=== PATIENT | female | born 1935 | race Caucasian/White ===

== ENCOUNTER 2025-07-20 19:14 | Emergency (ER) | payer MEDICARE | END 2025-07-20 22:27 | disposition home or self-care (01) | LOC: ERS 19:14 | DX: Z04.3 Encounter for examination and observation following other accident (principal); I10 Essential (primary) hypertension; W19.XXXA Unspecified fall, initial encounter; Y93.53 Activity, golf; Y92.009 Unspecified place in unspecified non-institutional (private) residence as the place of occurrence of the external cause | CPT/HCPCS: 72170; 72220; 99283 ==

== ENCOUNTER 2025-07-21 22:06 | Inpatient (IN) | payer MEDICARE ==
[2025-07-21 22:59] LABS: Hematocrit 34.1 % (36.0-47.0); Hemoglobin 11.1 g/dL (12.0-16.0); Mean Corpuscular Hemoglobin 29.4 pg (27.0-31.0); Mean Corpuscular Volume 90.2 fL (78.0-98.0); Platelet Count 394 10x3/uL (130-400); Red Blood Cell (RBC) Count 3.78 mill/uL (4.20-5.40); White Blood Cell (WBC) Count 39.84 10x3/uL (4.8-10.8)
[2025-07-21 23:08] LABS: ALT (SGPT) 20 U/L (Less than 34); AST (SGOT) 41 U/L (11-34); Albumin 2.8 g/dL (3.1-4.5); Alkaline Phosphatase 112 U/L (40-110); Anion Gap 19 mmol/L (10-20); BUN (Urea Nitrogen) 20 mg/dL (9.8-20.1); Bilirubin, Total 0.6 mg/dL (0.3-1.2); Calc. Creatinine Clearance 0 mL/min (70-130); Calcium 9.2 mg/dL (7.8-10.44); Carbon Dioxide 21 mmol/L (23-31); Chloride 95 mmol/L (98-107); Globulin 3.9 g/dL (2.4-3.5); Glucose 122 mg/dL (83-110); Potassium 3.1 mmol/L (3.5-5.1); Sodium 132 mmol/L (136-145)
[2025-07-21 23:18] LABS: Anisocytosis SLIGHT = 6-15 cells HPF (0-5); Platelet Adequacy Comment Platelets Normal; Polychromasia SLIGHT = 2-3 cells HPF (0-2)
[2025-07-22] MEDS ORDERED: Cefepime 2 GM VIAL ONE (00:13)
[2025-07-22] MEDS ORDERED: Potassium Bicarbonate/Cit Ac 20 MEQ TAB ONE (01:04)
[2025-07-22] MEDS: Vancomycin 1.25 GM / NS 250 ML VIAL-2-BAG IVPB SCH (03:23)
[2025-07-22 03:32] VITALS: BMI 19.5
[2025-07-22] MEDS: NS 0.9% w/ 40 MEQ KCL 1,000 ML IV SCH (04:13)
[2025-07-22 06:42] LABS: Magnesium 1.2 mg/dL (1.6-2.6)
[2025-07-22 06:57] LABS: CRP, High Sensitivity at Bryan 18.11 mg/dL (< or = 0.5)
[2025-07-22] MEDS: Acetaminophen 325 MG TAB PO SCH (09:28)
[2025-07-22] MEDS: Aspirin 81 mg Enteric Coated Tablet PO SCH (09:28)
[2025-07-22] MEDS: Pantoprazole 40 MG DR.TAB PO SCH (09:29)
[2025-07-22] MEDS: Magnesium 2 GM/50 ML(in water) 2 GM in Premix 1 BAG IVPB SCH (14:46)
[2025-07-22 15:25] LABS: Magnesium 1.2 mg/dL (1.6-2.6)
[2025-07-22 16:17] LABS: Glucose, Urine (Dipstick) Normal (Negative); Leukocyte 500 Leu/uL (Negative); Protein, Urine (Dipstick) 10 mg/dL (Neg-Trace); Specific Gravity, Urine 1.013 (1.002-1.036); WBC/HPF Greater than 50 HPF (0-3)
[2025-07-22 16:26] LABS: Bacteria/HPF 1+ HPF (None Seen)
[2025-07-22] MEDS: Vancomycin 1 GM in Premix 1 BAG IVPB SCH (23:22)
[2025-07-23] MEDS ORDERED: Vancomycin 1 GM in Premix 1 BAG IVPB SCH (01:00)
[2025-07-23 06:39] LABS: #Basophils 0.04 10x3/uL (0.0-0.2); #Eosinophils 0.03 10x3/uL (0.0-0.7); #Monocytes 1.32 10x3/uL (0.11-0.59); #Neutrophils 11.34 10x3/uL (1.40-6.50); %Basophils 0.3 % (0.0-1.0); %Eosinophils 0.2 % (0.0-10.0); %Lymphocytes 14.0 % (21.0-51.0); %Monocytes 8.8 % (0.0-10.0); %Neutrophils 75.2 % (42.0-75.0); Hematocrit 30.0 % (36.0-47.0); Hemoglobin 9.5 g/dL (12.0-16.0); Mean Corpuscular Hemoglobin 28.7 pg (27.0-31.0); Mean Corpuscular Volume 90.6 fL (78.0-98.0); Platelet Count 355 10x3/uL (130-400); Red Blood Cell (RBC) Count 3.31 mill/uL (4.20-5.40); White Blood Cell (WBC) Count 15.05 10x3/uL (4.8-10.8)
[2025-07-23 06:53] LABS: Vancomycin, Random 21.5 ug/mL (See Comment)
[2025-07-23 06:54] LABS: Anion Gap 12 mmol/L (10-20); BUN (Urea Nitrogen) 13 mg/dL (9.8-20.1); Calc. Creatinine Clearance 43 mL/min (70-130); Calcium 8.0 mg/dL (7.8-10.44); Carbon Dioxide 23 mmol/L (23-31); Chloride 107 mmol/L (98-107); Glucose 86 mg/dL (83-110); Potassium 3.5 mmol/L (3.5-5.1); Sodium 138 mmol/L (136-145)
[2025-07-23] MEDS: Lisinopril 5 MG TAB PO SCH (15:52)
[2025-07-23 23:31] LABS: Iron 22 ug/dL (50-170); Iron Binding Capacity, Total 169 mcg/dL (265-497)
[2025-07-24 05:53] LABS: #Basophils 0.04 10x3/uL (0.0-0.2); #Eosinophils 0.04 10x3/uL (0.0-0.7); #Monocytes 1.64 10x3/uL (0.11-0.59); #Neutrophils 10.15 10x3/uL (1.40-6.50); %Basophils 0.3 % (0.0-1.0); %Eosinophils 0.3 % (0.0-10.0); %Lymphocytes 20.0 % (21.0-51.0); %Monocytes 10.8 % (0.0-10.0); %Neutrophils 67.1 % (42.0-75.0); Hematocrit 31.2 % (36.0-47.0); Hemoglobin 9.7 g/dL (12.0-16.0); Mean Corpuscular Hemoglobin 29.3 pg (27.0-31.0); Mean Corpuscular Volume 94.3 fL (78.0-98.0); Platelet Count 361 10x3/uL (130-400); Red Blood Cell (RBC) Count 3.31 mill/uL (4.20-5.40); White Blood Cell (WBC) Count 15.13 10x3/uL (4.8-10.8)
[2025-07-24 06:17] LABS: Anion Gap 14 mmol/L (10-20); BUN (Urea Nitrogen) 12 mg/dL (9.8-20.1); Calc. Creatinine Clearance 41 mL/min (70-130); Calcium 8.2 mg/dL (7.8-10.44); Carbon Dioxide 18 mmol/L (23-31); Chloride 112 mmol/L (98-107); Glucose 82 mg/dL (83-110); Magnesium 1.5 mg/dL (1.6-2.6); Potassium 3.5 mmol/L (3.5-5.1); Sodium 140 mmol/L (136-145)
[2025-07-24] MEDS ORDERED: Aspirin 81 mg Enteric Coated Tablet PO SCH (09:00)
[2025-07-24] MEDS: Folic Acid 1 MG TAB PO SCH (09:06)
[2025-07-24] MEDS: Lisinopril 5 MG TAB PO SCH (09:06)
[2025-07-24] MEDS: Enoxaparin 40 MG (0.4 mL) SYRINGE SC SCH (09:07)
[2025-07-24] MEDS: Magnesium 2 GM/50 ML(in water) 2 GM in Premix 1 BAG IVPB SCH (11:31)
[2025-07-25 06:40] LABS: Hematocrit 33.8 % (36.0-47.0); Hemoglobin 10.8 g/dL (12.0-16.0); Mean Corpuscular Hemoglobin 29.0 pg (27.0-31.0); Mean Corpuscular Volume 90.9 fL (78.0-98.0); Platelet Count 375 10x3/uL (130-400); Red Blood Cell (RBC) Count 3.72 mill/uL (4.20-5.40); White Blood Cell (WBC) Count 25.74 10x3/uL (4.8-10.8)
[2025-07-25 06:54] LABS: Vancomycin, Random 22.5 ug/mL (See Comment)
[2025-07-25 06:57] LABS: Anion Gap 13 mmol/L (10-20); BUN (Urea Nitrogen) 13 mg/dL (9.8-20.1); Calc. Creatinine Clearance 36 mL/min (70-130); Calcium 8.5 mg/dL (7.8-10.44); Carbon Dioxide 22 mmol/L (23-31); Chloride 109 mmol/L (98-107); Glucose 87 mg/dL (83-110); Magnesium 1.8 mg/dL (1.6-2.6); Potassium 3.6 mmol/L (3.5-5.1); Sodium 140 mmol/L (136-145)
[2025-07-25 08:14] LABS: Burr Cells SLIGHT = 2-5 cells HPF (0-1); Macrocytosis SLIGHT = 6-15 cells HPF (0-5); Ovalocytes SLIGHT = 2-5 cells HPF (0-1); Platelet Adequacy Comment Platelets Normal; Polychromasia SLIGHT = 2-3 cells HPF (0-2)
[2025-07-25] MEDS: Lisinopril 5 MG TAB PO SCH (14:29)
[2025-07-25] MEDS: Vancomycin HCl 750 MG in Sodium Chloride 0.9% 250 ML 250 ML IVPB SCH (20:39)
[2025-07-26 06:25] LABS: #Basophils 0.06 10x3/uL (0.0-0.2); #Eosinophils 0.05 10x3/uL (0.0-0.7); #Monocytes 2.01 10x3/uL (0.11-0.59); #Neutrophils 13.14 10x3/uL (1.40-6.50); %Basophils 0.3 % (0.0-1.0); %Eosinophils 0.3 % (0.0-10.0); %Lymphocytes 19.1 % (21.0-51.0); %Monocytes 10.4 % (0.0-10.0); %Neutrophils 67.9 % (42.0-75.0); Hematocrit 30.0 % (36.0-47.0); Hemoglobin 9.7 g/dL (12.0-16.0); Mean Corpuscular Hemoglobin 29.4 pg (27.0-31.0); Mean Corpuscular Volume 90.9 fL (78.0-98.0); Platelet Count 359 10x3/uL (130-400); Red Blood Cell (RBC) Count 3.30 mill/uL (4.20-5.40); White Blood Cell (WBC) Count 19.33 10x3/uL (4.8-10.8)
[2025-07-26 06:39] LABS: Anion Gap 10 mmol/L (10-20); BUN (Urea Nitrogen) 14 mg/dL (9.8-20.1); Calc. Creatinine Clearance 38 mL/min (70-130); Calcium 8.6 mg/dL (7.8-10.44); Carbon Dioxide 23 mmol/L (23-31); Chloride 109 mmol/L (98-107); Glucose 90 mg/dL (83-110); Potassium 3.8 mmol/L (3.5-5.1); Sodium 138 mmol/L (136-145)
[2025-07-26] MEDS: Lisinopril 10 MG TAB PO SCH (09:03)
[2025-07-27 05:32] LABS: #Basophils 0.06 10x3/uL (0.0-0.2); #Eosinophils 0.05 10x3/uL (0.0-0.7); #Monocytes 1.83 10x3/uL (0.11-0.59); #Neutrophils 12.26 10x3/uL (1.40-6.50); %Basophils 0.3 % (0.0-1.0); %Eosinophils 0.3 % (0.0-10.0); %Lymphocytes 20.5 % (21.0-51.0); %Monocytes 9.9 % (0.0-10.0); %Neutrophils 66.5 % (42.0-75.0); Hematocrit 28.9 % (36.0-47.0); Hemoglobin 9.0 g/dL (12.0-16.0); Mean Corpuscular Hemoglobin 28.9 pg (27.0-31.0); Mean Corpuscular Volume 92.9 fL (78.0-98.0); Platelet Count 380 10x3/uL (130-400); Red Blood Cell (RBC) Count 3.11 mill/uL (4.20-5.40); White Blood Cell (WBC) Count 18.45 10x3/uL (4.8-10.8)
[2025-07-27 05:45] LABS: Vancomycin, Random 21.2 ug/mL (See Comment)
[2025-07-27 05:47] LABS: Anion Gap 11 mmol/L (10-20); BUN (Urea Nitrogen) 18 mg/dL (9.8-20.1); Calc. Creatinine Clearance 39 mL/min (70-130); Calcium 8.6 mg/dL (7.8-10.44); Carbon Dioxide 23 mmol/L (23-31); Chloride 110 mmol/L (98-107); Glucose 85 mg/dL (83-110); Potassium 3.8 mmol/L (3.5-5.1); Sodium 140 mmol/L (136-145)
[2025-07-28] MEDS: hydrALAZINE 20 MG/ML VIAL SLOW IVP PRN (05:08)
[2025-07-28 10:41] LABS: #Basophils 0.05 10x3/uL (0.0-0.2); #Eosinophils 0.04 10x3/uL (0.0-0.7); #Monocytes 1.29 10x3/uL (0.11-0.59); #Neutrophils 10.56 10x3/uL (1.40-6.50); %Basophils 0.3 % (0.0-1.0); %Eosinophils 0.2 % (0.0-10.0); %Lymphocytes 23.4 % (21.0-51.0); %Monocytes 7.9 % (0.0-10.0); %Neutrophils 64.8 % (42.0-75.0); Hematocrit 30.7 % (36.0-47.0); Hemoglobin 9.7 g/dL (12.0-16.0); Mean Corpuscular Hemoglobin 29.5 pg (27.0-31.0); Mean Corpuscular Volume 93.3 fL (78.0-98.0); Platelet Count 439 10x3/uL (130-400); Red Blood Cell (RBC) Count 3.29 mill/uL (4.20-5.40); White Blood Cell (WBC) Count 16.30 10x3/uL (4.8-10.8)
[2025-07-28 11:26] VITALS: BP 94/54; TEMP 97.9
== END 2025-07-28 16:00 | DRG 535 ==
LOC: ERS 22:06 → ERHOLD 07-22 00:28 → SURG B 07-22 08:15
PROVIDERS: ADMIT Internal Medicine; ATTEND Internal Medicine
DX: S72.002A Fracture of unspecified part of neck of left femur, initial encounter for closed fracture (principal); A41.9 Sepsis, unspecified organism; M97.02XA Periprosthetic fracture around internal prosthetic left hip joint, initial encounter; E87.1 Hypo-osmolality and hyponatremia; L03.115 Cellulitis of right lower limb; C90.00 Multiple myeloma not having achieved remission; G89.29 Other chronic pain; K21.9 Gastro-esophageal reflux disease without esophagitis; Z86.73 Personal history of transient ischemic attack (TIA), and cerebral infarction without residual deficits; Z79.899 Other long term (current) drug therapy; Z88.8 Allergy status to other drugs, medicaments and biological substances; Z79.82 Long term (current) use of aspirin; Z90.49 Acquired absence of other specified parts of digestive tract; E83.39 Other disorders of phosphorus metabolism; N18.2 Chronic kidney disease, stage 2 (mild); I12.9 Hypertensive chronic kidney disease with stage 1 through stage 4 chronic kidney disease, or unspecified chronic kidney disease; D63.1 Anemia in chronic kidney disease
CPT/HCPCS: 36415; 36416; 70450; 71045; 72125; 72170; 80048; 80053; 80202; 81001; 82728; 83540; 83550; 83605; 83735; 84100; 84484; 85025; 86141; 87040; 87081; 87324; 87449; 93005; 96365; 96367; 96375; 97139; J0360; J0692; J1650; J2270; J2916; J3373; J3475; J3480; J7050

== ENCOUNTER 2025-09-06 15:53 | Inpatient (IN) | payer MEDICARE ==
[~2025-09-06 15:53] MED LIST: Iopamidol-370 76% 500 ML MDV (1 ML CHARGE) ONE
[2025-09-06] MEDS ORDERED: Ondansetron PF 4 MG/2 ML Vial ONE (17:27)
[2025-09-06 17:55] LABS: Hematocrit 36.4 % (36.0-47.0); Hemoglobin 11.5 g/dL (12.0-16.0); Mean Corpuscular Hemoglobin 29.0 pg (27.0-31.0); Mean Corpuscular Volume 91.9 fL (78.0-98.0); Platelet Count 385 10x3/uL (130-400); Red Blood Cell (RBC) Count 3.96 mill/uL (4.20-5.40); White Blood Cell (WBC) Count 27.10 10x3/uL (4.8-10.8)
[2025-09-06 18:01] LABS: Anisocytosis MODERATE=16-30 cells HPF (0-5); Burr Cells MODERATE= 6-15 cells HPF (0-1); Macrocytosis SLIGHT = 6-15 cells HPF (0-5); Platelet Adequacy Comment Platelets Normal; Poikilocytosis MARKED = >30 cells HPF (0-5); Polychromasia SLIGHT = 2-3 cells HPF (0-2); Smudge Cells 4.8 %
[2025-09-06 18:02] LABS: ALT (SGPT) 29 U/L (Less than 34); AST (SGOT) 79 U/L (11-34); Albumin 3.1 g/dL (3.1-4.5); Alkaline Phosphatase 103 U/L (40-110); Anion Gap 28 mmol/L (10-20); BUN (Urea Nitrogen) 18 mg/dL (9.8-20.1); Bilirubin, Total 0.5 mg/dL (0.3-1.2); CK (CPK) 536 U/L (29-168); Calc. Creatinine Clearance 0 mL/min (70-130); Calcium 7.7 mg/dL (7.8-10.44); Carbon Dioxide 14 mmol/L (23-31); Chloride 99 mmol/L (98-107); Globulin 3.3 g/dL (2.4-3.5); Glucose 179 mg/dL (83-110); Lipase 23 U/L (8-78); Magnesium Less than 0.7 mg/dL (1.6-2.6); Potassium 3.3 mmol/L (3.5-5.1); Sodium 138 mmol/L (136-145)
[2025-09-06] MEDS ORDERED: Magnesium 2 GM/50 ML BAG (IN WATER) ONE (18:27)
[2025-09-06 19:00] LABS: CAUTI Indications for Culture Dysuria,urgency,freq; Glucose, Urine (Dipstick) Normal (Negative); Leukocyte 250 Leu/uL (Negative); Protein, Urine (Dipstick) 70 mg/dL (Neg-Trace); RBC/HPF 0-3 HPF (0-3); Specific Gravity, Urine 1.019 (1.002-1.036); WBC/HPF 21-50 HPF (0-3)
[2025-09-06 19:02] LABS: Bacteria/HPF 1+ HPF (None Seen)
[2025-09-06 19:04] LABS: Urine Culture Reflex Yes Yes
[2025-09-06] MEDS ORDERED: Norepinephrine 8 MG/0.9% NS 250 ML IVPB SCH (20:45)
[2025-09-06] MEDS ORDERED: Electrolyte Replacement Protocol 1 EACH FS SCH (20:45)
[2025-09-06] MEDS ORDERED: PHOS-NAK 1 PKT PACK PO PRN (21:00)
[2025-09-06] MEDS ORDERED: Norepinephrine 8 MG/0.9% NS 250 ML ONE (21:16)
[2025-09-06 23:03] VITALS: BMI 16.1
[2025-09-06 23:49] LABS: ALT (SGPT) 25 U/L (Less than 34); AST (SGOT) 80 U/L (11-34); Albumin 2.4 g/dL (3.1-4.5); Alkaline Phosphatase 81 U/L (40-110); Anion Gap 23 mmol/L (10-20); BUN (Urea Nitrogen) 17 mg/dL (9.8-20.1); Bilirubin, Total 0.5 mg/dL (0.3-1.2); Calc. Creatinine Clearance 22 mL/min (70-130); Calcium 6.6 mg/dL (7.8-10.44); Carbon Dioxide 16 mmol/L (23-31); Chloride 104 mmol/L (98-107); Globulin 2.7 g/dL (2.4-3.5); Glucose 140 mg/dL (83-110); Potassium 3.5 mmol/L (3.5-5.1); Sodium 139 mmol/L (136-145)
[2025-09-07] MEDS: Albumin 25% 25 GM (100 mL) BOT IVPB SCH ×2 (00:24→05:55)
[2025-09-07] MEDS: Ondansetron PF 4 MG/2 ML Vial IVP PRN (01:56)
[2025-09-07 03:36] LABS: #Basophils 0.04 10x3/uL (0.0-0.2); #Eosinophils Less than 0.03 10x3/uL (0.0-0.7); #Monocytes 2.15 10x3/uL (0.11-0.59); #Neutrophils 18.34 10x3/uL (1.40-6.50); %Basophils 0.2 % (0.0-1.0); %Eosinophils 0.0 % (0.0-10.0); %Lymphocytes 11.4 % (21.0-51.0); %Monocytes 8.9 % (0.0-10.0); %Neutrophils 76.2 % (42.0-75.0); Hematocrit 28.5 % (36.0-47.0); Hemoglobin 9.3 g/dL (12.0-16.0); Mean Corpuscular Hemoglobin 29.2 pg (27.0-31.0); Mean Corpuscular Volume 89.3 fL (78.0-98.0); Platelet Count 265 10x3/uL (130-400); Red Blood Cell (RBC) Count 3.19 mill/uL (4.20-5.40); White Blood Cell (WBC) Count 24.09 10x3/uL (4.8-10.8)
[2025-09-07 03:56] LABS: ALT (SGPT) 22 U/L (Less than 34); AST (SGOT) 82 U/L (11-34); Albumin 3.2 g/dL (3.1-4.5); Alkaline Phosphatase 71 U/L (40-110); Anion Gap 21 mmol/L (10-20); BUN (Urea Nitrogen) 16 mg/dL (9.8-20.1); Bilirubin, Total 0.6 mg/dL (0.3-1.2); Calc. Creatinine Clearance 23 mL/min (70-130); Calcium 7.1 mg/dL (7.8-10.44); Carbon Dioxide 18 mmol/L (23-31); Chloride 103 mmol/L (98-107); Globulin 2.4 g/dL (2.4-3.5); Glucose 124 mg/dL (83-110); Magnesium 1.1 mg/dL (1.6-2.6); Potassium 3.0 mmol/L (3.5-5.1); Sodium 139 mmol/L (136-145)
[2025-09-07] MEDS: Magnesium Sulfate In Water 4 GM in Premix 1 BAG IVPB PRN (05:53)
[2025-09-07] MEDS: Potassium Chloride 20 MEQ in Premix 1 BAG IVPB PRN (05:54)
[2025-09-07] MEDS: Mupirocin 1 GM TUBE NASAL DECOLONIZATION TP SCH (11:43)
[2025-09-07 12:04] LABS: Magnesium 2.6 mg/dL (1.6-2.6); Potassium 3.6 mmol/L (3.5-5.1)
[2025-09-07 13:21] VITALS: BMI 16.1
[2025-09-07] MEDS: Aspirin 325 MG TAB PO SCH (13:56)
[2025-09-07] MEDS: Acetaminophen 325 MG TAB PO PRN (13:57)
[2025-09-07] MEDS: Cyanocobalamin (Vitamin B-12) 1,000 MCG TAB PO SCH (20:41)
[2025-09-07] MEDS: Folic Acid 1 MG TAB PO SCH (20:41)
[2025-09-07] MEDS: Thiamine 100 MG TAB PO SCH (20:41)
[2025-09-07] MEDS: Multivit, Therapeutic 1 TAB PO SCH (20:41)
[2025-09-07] MEDS: Cholecalciferol 1,000 UNITS (25 MCG) TAB PO SCH (20:41)
[2025-09-07] MEDS: Mupirocin 1 GM TUBE NASAL DECOLONIZATION NASAL SCH (20:42)
[2025-09-07] MEDS ORDERED: Famotidine/PF 20 mg/2ml Vial SLOW IVP SCH (21:00)
[2025-09-07 21:14] VITALS: TEMP 96.9
[2025-09-08] MEDS ORDERED: Pantoprazole 40 MG DR.TAB PO SCH (09:00)
[2025-09-08] MEDS ORDERED: Aspirin 81 mg Enteric Coated Tablet PO SCH (09:00)
== END 2025-09-07 22:25 | disposition expired | DRG 871 ==
LOC: ERS 15:53 → ERHOLD 20:46 → CCU 22:25
PROVIDERS: ADMIT Student in an Organized Health Care Education/Training Program; ATTEND Internal Medicine
PROC: 30233J1 Transfusion of Nonautologous Serum Albumin into Peripheral Vein, Percutaneous Approach (ICD-10-PCS; principal; 2025-09-07)
PROC: 3E03329 Introduction of Other Anti-infective into Peripheral Vein, Percutaneous Approach (ICD-10-PCS; 2025-09-07)
DX: A41.9 Sepsis, unspecified organism (principal); R65.21 Severe sepsis with septic shock; E87.20 Acidosis, unspecified; N39.0 Urinary tract infection, site not specified; K57.20 Diverticulitis of large intestine with perforation and abscess without bleeding; N17.9 Acute kidney failure, unspecified; Z66 Do not resuscitate; I24.89 Other forms of acute ischemic heart disease; Z88.5 Allergy status to narcotic agent; I25.10 Atherosclerotic heart disease of native coronary artery without angina pectoris; E78.5 Hyperlipidemia, unspecified; I10 Essential (primary) hypertension; G89.29 Other chronic pain; R07.89 Other chest pain; E87.6 Hypokalemia; E83.42 Hypomagnesemia; G25.0 Essential tremor; Z96.642 Presence of left artificial hip joint; M54.9 Dorsalgia, unspecified; R54 Age-related physical debility; Z98.890 Other specified postprocedural states; Z85.79 Personal history of other malignant neoplasms of lymphoid, hematopoietic and related tissues; Z90.710 Acquired absence of both cervix and uterus; Z95.810 Presence of automatic (implantable) cardiac defibrillator; Z86.73 Personal history of transient ischemic attack (TIA), and cerebral infarction without residual deficits; Z90.49 Acquired absence of other specified parts of digestive tract
CPT/HCPCS: 36415; 36416; 51701; 70450; 71045; 74177; 80053; 81001; 82550; 83605; 83690; 83735; 84100; 84484; 85025; 86850; 86870; 86900; 86901; 87040; 87077; 87086; 87186; 93005; 93010; 96361; 96365; 96368; 96375; J2405; J2543; J3010; J3373; J3475; J3480; J7050; J7120; P9047; Q9967